=== PATIENT | male | born 1975 | race Caucasian/White ===

== ENCOUNTER 2022-07-22 05:56 | Day surgery (SDC) | payer BC ==
[2022-07-22] MEDS ORDERED: Dextrose 5%-0.45% NaCl 1,000 ML IV SCH (06:00)
[2022-07-22] MEDS ORDERED: Midazolam 1 MG/ML 2 ML SDV ONE (06:09)
[2022-07-22] MEDS ORDERED: fentaNYL 100 MCG/2 ML SDV ONE (06:10)
[2022-07-22] MEDS ORDERED: fentaNYL 100 MCG/2 ML SDV IV ONE ×2 (06:34)
[2022-07-22] MEDS ORDERED: Midazolam 1 MG/ML 2 ML SDV IV ONE ×2 (06:35→06:36)
== END 2022-07-22 08:20 | disposition home or self-care (01) ==
LOC: DL.ENDO 05:56
PROVIDERS: ATTEND Internal Medicine Gastroenterology
DX: K31.89 Other diseases of stomach and duodenum (principal); K31.84 Gastroparesis; E66.9 Obesity, unspecified; K21.9 Gastro-esophageal reflux disease without esophagitis; I10 Essential (primary) hypertension; G47.33 Obstructive sleep apnea (adult) (pediatric); R79.89 Other specified abnormal findings of blood chemistry; Z86.010 Personal history of colon polyps; Z68.41 Body mass index [BMI] 40.0-44.9, adult
CPT/HCPCS: 43239; 87077; J2250; J3010; J7042